=== PATIENT | female | born 1980 | race Caucasian/White ===

== ENCOUNTER 2020-12-03 01:00 | Day surgery (SDC) | payer OTHER, SELFPAY ==
[2020-11-26 15:20] VITALS: BMI 26.0
[2020-12-03] VITALS (8 sets, daily range): BP systolic 114–160; BP diastolic 69–85; PULSE 60–83; RESP 14–18; TEMP 36.2–36.5; O2SAT 100
--- NOTE | 2020-12-03 12:16 | P.HP_ITS ---
History of Present Illness History of Present Illness Consent: Risks, benefits, and alternatives have been discussed and questions answered. Patient agrees to proceed with procedure. Chief complaint: desires sterilization, abnormal uterine bleeding Narrative: Betsy Kelly is a 40 year old female has Heavy menstrual bleeding. EMB benign and failed hormoens/nsaids. Riskb/enefits/alternatives discussed planned to move forward with hysteroscopy with endoemtrial ablation and tubal sterilization Review of Systems Review of Systems: All systems reviewed & are unremarkable except as noted in HPI and below Constitutional: Constitutional: Reports no additional constitutional complaints Eyes: Eyes: Reports no additional eye complaints ENT: Reports system reviewed and no additional complaints, except as documented Respiratory: Respiratory: Reports no additional respiratory complaints Gastrointestinal: Gastrointestinal: Reports no additional gastrointestinal complaints Genitourinary: Genitourinary: Reports no additional female genitourinary complaints Musculoskeletal: Musculoskeletal: Reports no additional musculoskeletal complaints Integumentary/Breasts: Skin/Breast: Reports system reviewed and no additional complaints, except as docu [facility], [facility] Social History Social History Smoking status: Never smoker Alcohol intake: current Substance use: never Living arrangements: with family Spiritual care concerns: No Meds Home Medications and Allergies Home Medications Medication Instructions Recorded Confirmed Type ascorbic acid-collagen [Collagen 1 cap PO DAILY 11/26/20 11/26/20 History Plus Vitamin C] calcium citrate-vitamin D3 [[place] 1 tablet PO DAILY 11/26/20 11/26/20 History Calcium-Vitamin D3] levonorgestrel-ethinyl estrad 1 tablet DAILY 11/26/20 11/26/20 History [Sronyx] losartan-hydrochlorothiazide 25 tablet PO DAILY 11/26/20 11/26/20 History phentermine 37.5 mg PO DAILY 11/26/20 11/26/20 History potassium chloride 10 meq PO DAILY 11/26/20 11/26/20 History Allergies Allergy/AdvReac Type Severity Reaction Status Date / Time No Known Allergies Allergy Verified 11/26/20 15:09 Exam Const: General: cooperative, healthy appearing and comfortable HENMT: Head: normal to inspection Eyes: General: appearance normal, both eyes and all related structures Neck: Neck: normal visual inspection Chest: Chest palpation & inspection: normal inspection of the chest Resp: Effort & Inspection: normal respiratory effort GI: Inspection: normal to inspection : General: Yes bladder normal to inspection Back/Spine/Pelvis: Back: no CVA tenderness Assessment and Plan Additional Plan Riskb/enefits/alternatives discussed planned to move forward with hysteroscopy with endoemtrial ablation and tubal sterilization
--- NOTE | 2020-12-03 12:18 | WPDHPUPDATE1 ---
History and Physical Update Update Date/Time: 12/03/20 12:18 History and Physical has been reviewed, including an updated exam of the patient. There are NO changes in the patient's condition. Risks, benefits, and alternatives have been discussed and questions answered. Patient agrees to proceed with procedure.
[2020-12-03] MEDS: ACETAMINOPHEN 500 MG TABLET 1000 MG PO (12:50)
[2020-12-03] MEDS: KETOROLAC 15 MG/ML VIAL (*BKC) IV PUSH (12:51)
[2020-12-03] MEDS: LACTATED RINGERS 1,000 ML 30 ML IV CONT ×2 (13:05→14:39)
--- NOTE | 2020-12-03 13:08 | P.PNAN_ITS ---
Anes - Initial Pre Proc Eval Procedure: Operation Date: 12/03/20 14:00 Proposed Procedures p Laparoscopic Bilateral Tubal Ligation with Fulguration - Amy Pham MD s Hysteroscopy with Endometrial Ablation with Chelsi - Amy Pham MD Date/Time: 12/03/20 13:08 Surgeon: Amy Pham MD Pre Op Diagnosis: desires sterilization, abnormal uterine bleeding Patient Data Age: 40 Gender: F Height: 1.75 m Weight: 80 kg Allergies Allergy/AdvReac Type Severity Reaction Status Date / Time No Known Allergies Allergy Verified 12/03/20 13:13 Home Medications Medication Instructions Recorded Confirmed Type ascorbic acid-collagen [Collagen 1 cap PO DAILY 11/26/20 11/26/20 History Plus Vitamin C] calcium citrate-vitamin D3 [[place] 1 tablet PO DAILY 11/26/20 11/26/20 History Calcium-Vitamin D3] levonorgestrel-ethinyl estrad 1 tablet DAILY 11/26/20 11/26/20 History [Sronyx] losartan-hydrochlorothiazide 25 tablet PO DAILY 11/26/20 11/26/20 History phentermine 37.5 mg PO DAILY 11/26/20 11/26/20 History potassium chloride 10 meq PO DAILY 11/26/20 11/26/20 History Patient hx anesthesia problems: none Family hx anesthesia problems: none Results Review: All pre-operative results and documents have been reviewed as part of the pre-operative evaluation. [facility], [facility] Past Medical History Medical History (Updated 12/03/20 @ 13:09 by Rolo Malcolm DO) Hypertension Surgical History Surgical History (Updated 12/03/20 @ 13:09 by Rolo Malcolm DO) History of cholecystectomy Social History Social History Smoking status: Never smoker Alcohol intake: current Substance use: never Living arrangements: with family Spiritual care concerns: No Anes - Eval Final PreProcedure Day of Procedure 12/03/20 13:08 Patient weight: overweight Heart: regular rate and rhythm Lungs: clear to auscultation and normal air movement Airway: Mallampati scale class II Neurological: alert and oriented Last oral intake: >/= 8 hours ASA classification: II Emergent: no Anesthetic plan: proceed Anesthesia type and monitoring: general ETT and standard monitoring Results Review: All pre-operative results and documents have been reviewed as part of the pre-operative evaluation. Informed Consent: The patient's anesthetic plan and its attendant risks and benefits were discussed with the patient/family/POA. Questions were solicited and answers provided to the satisfaction of the patient/family/POA.
--- NOTE | 2020-12-03 14:37 | W.PM.PROC2 ---
Procedure Note - Detailed Date of Procedure 12/03/20 Pre-op Diagnosis desires sterilization, abnormal uterine bleeding Post-op Diagnosis same Procedure Performed laparoscopic bilateral tubal sterilization with bipolar cautery, hysteroscopy with endometrial ablation Surgeon Amy Pham MD Anesthesia general Indications Has had heavy menstrual bleeding. EMB benign. Was also looking to stop contraception and get sterilization performed. Risk/benefits/altneratives discussed. Planned laparoscopic tubal steirlization and hysteroscopy with endometrial ablation Findings normal uterus/ovaries and tubes. no intraabdominal adhesions Description of Procedure The patient was taken to the operating room where general anesthesia was found to be adequate. She was then prepared and draped in the dorsal supine position with Janay stirrups. A felix catheter placed. A speculum used to visualize the cervix and a single toothed tenaculum placed on the anterior lip. A mahan uterine manipulator was placed within the cervix and affixed to the tenaculum. Attention was then turned to the umbilicus which was injected with 1% lidocaine with epinephrine. The infraumbilical incision incised with a scalpel and hemostat used to separate the subcutaneous tissue. The veres needle used to enter into the peritoneum and saline drop test was positive for entry. Pneumoperitoneum created to 15mmHg and A 5mm trocar placed with optical entry. Upon entry into the peritoneum, some subcutaneous pneumo noted and extended into the omentum. The patient was placed in Trendelenberg and the uterus elevated. Uterus/ovaries/tubes all appeared normal. A suprapubic port placed my injecting the skin with 1% lidocaine with epinephrine, incising the skin with scalpel and 5mm port placed with direct visualization. The Kleppenger was then used to cauterize the mid portion of the Fallopian tube on the left for approximately 2cm and then cauterize the paratubal tissue as well. Similarly the right tube was cauterized along the midportion of the tube for approximately 2cm and the paratubal tissue as well. Images taken. The pelvis was inspected and was normal. The upper abdomen again inspected and the subcutaneous insufflation had improved and almost completely resolved. The pneumoperintoneum was then released and port sites removed. The skin was closed with 4-0 monocryl in interrupted fashion and covered with sterile dressings. The speculum was again reinserted and mahan manipulator was removed. The cervix was serially dilated with hegar dilators and hysteroscope placed with 0.9% sterile saline for distension. The endometrial cavity all appeared normal without lesion. So the rosemarie was prepared and cavity length set to 4cm. The cavity assessment passed and rosemarie ablation proceeded without complication. The rosemarie was removed and hysteroscope again passed. Good coverage throughout the endometrium noted. The hysteroscope and tenaculum removed and sites hemostatic so the felix catheter was removed. The patient tolerated the procedure well. All sponge lap and needle counts were correct. Estimated Blood Loss 5 Drains No Packing No Pathology none sent Complications No immediate complications Condition stable Disposition PACU
--- NOTE | 2020-12-03 16:27 | SUR.PHASEII ---
Patient kept denying enough pain to be medicated. RN offered a pain pill multiple times since patient lives about [place] hour away. When patient was getting dressed to go home, she asked if it was too late for a pain pill.
[2020-12-03] MEDS: oxyCODONE HCL (*CRX) 5 MG TAB IR PO (16:33)
== END 2020-12-03 16:35 | disposition home or self-care (01) ==
PROVIDERS: Visit Provider Obstetrics & Gynecology
PROC: (CPT 58671; principal; 2020-12-03 14:00)
PROC: 0U5B8ZZ Destruction of Endometrium, Via Natural or Artificial Opening Endoscopic (ICD-10-PCS; CPT 58563; 2020-12-03 14:00)
DX: Z30.2 Encounter for sterilization (principal); N93.9 Abnormal uterine and vaginal bleeding, unspecified; I10 Essential (primary) hypertension; Z90.49 Acquired absence of other specified parts of digestive tract
CPT/HCPCS: 58670; 58563; A9270; J1100; J1170; J1885; J2250; J2405; J2704; J3010; J7030; J7120